=== PATIENT | male | born 1960 | race Caucasian/White ===

== ENCOUNTER 2017-12-25 09:30 | Day surgery (SDC) | payer BC ==
[2017-12-25] MEDS: BUPIVACAINE 0.5% 30 ML VIAL INJ
[~2017-12-25 09:30] MED LIST: CEFAZOLIN 1 GM/50 ML (PMX) 50 ML IVPB; SOD CHLORIDE 0.9% 1,000 ML IV
[2017-12-25] MEDS ORDERED: PROPOFOL 20 ML (13:30)
[2017-12-25] MEDS ORDERED: MIDAZOLAM 1 MG/ML 2 ML INJ (13:30)
[2017-12-25] MEDS ORDERED: METOCLOPRAMIDE 10 MG INJ (13:30)
[2017-12-25] MEDS ORDERED: NEOSTIGMINE 3 MG/3 ML SYRINGE (13:30)
[2017-12-25] MEDS ORDERED: ROPIVACAINE 0.5 % 30 ML VIAL (13:30)
[2017-12-25] MEDS ORDERED: ROCURONIUM 50 MG INJ (13:30)
[2017-12-25] MEDS ORDERED: ONDANSETRON 4 MG INJ (13:30)
[2017-12-25] MEDS ORDERED: GLYCOPYRROLATE 0.4 MG INJ (13:30)
[2017-12-25] MEDS ORDERED: KETOROLAC 30 MG INJ (13:31)
[2017-12-25] MEDS ORDERED: FENTAnyl 50 MCG/ML VIAL (13:42)
[2017-12-25] MEDS: BUPIVACAINE 0.25% (MPF) 30 ML INJ (14:21)
[2017-12-25] MEDS ORDERED: DIPHENHYDRAMINE 50 MG INJ IV (14:30)
[2017-12-25] MEDS ORDERED: MEPERIDINE 25 MG INJ IV (14:30)
[2017-12-25] MEDS ORDERED: OXYCODONE/ACETAMINOPHEN (5/325) TAB PO (14:30)
[2017-12-25] MEDS ORDERED: ONDANSETRON 4 MG INJ IV (14:30)
[2017-12-25] MEDS ORDERED: KETOROLAC 30 MG INJ IV (14:30)
[2017-12-25] MEDS ORDERED: HYDROmorphONE 1 MG/5 ML IV SYRINGE IV ×3 (14:30)
[2017-12-25] MEDS ORDERED: HYDROmorphONE 2 MG/ML SYG (14:34)
[2017-12-25] MEDS ORDERED: CEFAZOLIN 1 GM INJ (14:34)
[2017-12-25] MEDS: HYDROCODONE/APAP (5/325) TAB PO (16:56)
[2018-01-13] MEDS ORDERED: LACTATED RINGER'S 1,000 ML IV* (14:00)
[2018-01-13] MEDS ORDERED: CEFAZOLIN 2 GM/50 ML (PMX) 50 ML IVPB (14:00)
[2018-01-13] MEDS ORDERED: ONDANSETRON 4 MG INJ (15:59)
[2018-01-13] MEDS ORDERED: HYDROmorphONE 1 MG/5 ML IV SYRINGE IV (15:59)
== END 2017-12-25 18:10 | disposition home or self-care (01) ==
LOC: SDS 09:30
DX: K80.10 Calculus of gallbladder with chronic cholecystitis without obstruction (principal)
CPT/HCPCS: 47562; 88304

== ENCOUNTER 2018-01-13 13:34 | Day surgery (SDC) | payer BC ==
[~2018-01-13 13:34] MED LIST changes: +ACETAMINOPHEN 1000 MG/100 ML IVPB; -CEFAZOLIN 1 GM/50 ML (PMX) 50 ML IVPB; +DEXAMETHASONE 4 MG/ML 1 ML INJ; +ONDANSETRON 4 MG INJ; +ROCURONIUM 50 MG INJ; -SOD CHLORIDE 0.9% 1,000 ML IV
[2018-01-13] MEDS ORDERED: POLYMYXIN/BACITRACIN 1L IRRIG (14:33)
[2018-01-13] MEDS ORDERED: BUPIVACAINE 0.5% (SDV) 30 ML INJ (14:33)
[2018-01-13] MEDS ORDERED: LACTATED RINGER'S 1,000 ML IV* (15:00)
[2018-01-13] MEDS: CEFAZOLIN 2 GM/50 ML (PMX) 50 ML IVPB (15:00)
[2018-01-13] MEDS ORDERED: PROPOFOL 20 ML (15:03)
[2018-01-13] MEDS ORDERED: PHENYLephrine (100 MCG/ML) 5ML SYG (15:14)
[2018-01-13] MEDS ORDERED: SUGAMMADEX SODIUM 200 MG/2 ML VIAL IV (15:37)
[2018-01-13] MEDS ORDERED: CEFAZOLIN 1 GM INJ (15:49)
[2018-01-13] MEDS ORDERED: METOCLOPRAMIDE 10 MG INJ IV (16:00)
[2018-01-13] MEDS ORDERED: DIPHENHYDRAMINE 50 MG INJ IV (16:00)
[2018-01-13] MEDS ORDERED: FENTAnyl 50 MCG/ML VIAL IV ×3 (16:00)
[2018-01-13] MEDS ORDERED: EPHEDrine SULFATE 50 MG/5 ML SYG IV (16:00)
[2018-01-13] MEDS ORDERED: KETOROLAC 30 MG INJ IV (16:00)
[2018-01-13] MEDS ORDERED: hydrALAzine 20 MG INJ IV (16:00)
[2018-01-13] MEDS ORDERED: HYDROmorphONE 1 MG/5 ML IV SYRINGE IV (16:00)
[2018-01-13] MEDS ORDERED: MEPERIDINE 25 MG INJ IV (16:00)
[2018-01-13] MEDS ORDERED: OXYCODONE/ACETAMINOPHEN (5/325) TAB PO ×2 (16:00)
[2018-01-13] MEDS ORDERED: LABETALOL HCL 20MG INJ IV (16:00)
[2018-01-13] MEDS: HYDROmorphONE 1 MG/5 ML IV SYRINGE IV ×2 (16:03→16:29)
[2018-01-13] MEDS: ONDANSETRON 4 MG INJ IV (16:03)
== END 2018-01-13 18:00 | disposition left against medical advice (07) ==
LOC: SDS 18:00
DX: M70.21 Olecranon bursitis, right elbow (principal)
CPT/HCPCS: 24105; 88304